=== PATIENT | female | born 1945 | race Hispanic/Latino ===

== ENCOUNTER 2023-08-07 23:37 | Inpatient (IN) | payer SELFPAY ==
[~2023-08-07] VITALS: Ht 157.5 cm; Wt 62.4 kg
[2023-08-08] VITALS (14 sets, daily range): BP systolic 100–115; BP diastolic 40–52; PULSE 71–81; RESP 16–18; TEMP 98–212.4; O2SAT 96–100
[2023-08-08 00:06] LABS: BASOPHILS # (AUTO) 0.1 (0.0-0.1); BASOPHILS % 1.1 % (0.0-1.0); EOSINOPHILS # (AUTO) 0.3 (0.0-0.4); EOSINOPHILS % 6.3 % (0.0-6.0); HEMATOCRIT 24.4 % (34.2-44.1); HEMOGLOBIN 7.7 g/dL (12.0-16.0); LYMPHOCYTES # (AUTO) 0.8 (1.0-3.2); LYMPHOCYTES % 14.8 % (18.0-39.1); MEAN CORPUSCULAR HGB CONC 31.6 g/dL (31-35); MEAN CORPUSCULAR VOLUME 94.9 fL (81-99); MONOCYTES # (AUTO) 0.5 (0.2-0.8); MONOCYTES % 9.5 % (4.4-11.3); NEUTROPHILS # (AUTO) 3.6 (2.1-6.9); NEUTROPHILS % 67.9 % (38.7-80.0); PLATELET COUNT 101 x10e3/uL (140-360); RED BLOOD COUNT 2.57 x10e6/uL (3.6-5.1); RED CELL DISTRIBUTION WIDTH 16.9 % (11.7-14.4); WHITE BLOOD COUNT 5.26 x10e3/uL (4.8-10.8)
[2023-08-08 00:13] LABS: INR 1.19; PROTHROMBIN TIME 15.8 seconds (11.9-14.5)
[2023-08-08 00:14] LABS: PARTIAL THROMBOPLASTIN TIME 38.3 seconds (23.8-35.5)
[2023-08-08 00:25] LABS: ANION GAP 11.3 mmol/L (8-16); CALCIUM 8.5 mg/dL (8.4-10.2); CREATININE, SERUM 1.61 mg/dL (0.57-1.11); POTASSIUM 4.3 mmol/L (3.5-5.1)
[2023-08-08 00:46] LABS: ALBUMIN 2.4 g/dL (3.5-5.0); ALBUMIN/GLOBULIN RATIO 0.7 (0.8-2.0)
[2023-08-08 01:31] LABS: CLARITY,URINE CLOUDY (CLEAR); COLOR,URINE YELLOW (YELLOW); LEUKOCYTE ESTERASE ,URINE TRACE (NEGATIVE); NITRITE,URINE NEGATIVE (NEGATIVE); PROTEIN,URINE DIPSTICK NEGATIVE (NEGATIVE)
[2023-08-08 01:32] LABS: KETONES,URINE TRACE (NEGATIVE); URINE UROBILINOGEN 0.2 mg/dL (0.2 - 1)
[2023-08-08 01:38] LABS: BACTERIA,URINE MANY /HPF; EPITHELIAL CELLS,URINE MANY /LPF; WBC,URINE (MAN) >50 /HPF (0-5)
[2023-08-08] MEDS ORDERED: SODIUM CHLORIDE 0.9% 1000ML 1,000 ML IV ONE (02:00)
[2023-08-08] MEDS ORDERED: ONDANSETRON HCL INJ 2MG/ML 2ML 2 MG/ML VIAL IV PRN (02:00)
[2023-08-08] MEDS ORDERED: DEXTROSE 50% SYRINGE 50 ML IV PRN (02:00)
[2023-08-08] MEDS ORDERED: LACTULOSE SYRUP 20 GM/30 ML UDC RC SCH ×2 (02:15→06:00)
[2023-08-08] MEDS: METRONIDAZOLE 500MG/NS 100ML 100 ML IV SCH ×5 (03:34→23:52)
[2023-08-08] MEDS ORDERED: LACTULOSE SYRUP 20 GM/30 ML UDC ONE ×2 (03:37→03:40)
[2023-08-08] MEDS ORDERED: XIFAXAN200 MG PO (04:30)
[2023-08-08] MEDS ORDERED: TRADJENTA5 MG (04:32)
[2023-08-08] MEDS ORDERED: PROPRANOLOL HCL40 MG PO (04:32)
[2023-08-08] MEDS: LACTULOSE SYRUP 20 GM/30 ML UDC RC SCH ×2 (05:40→05:51)
[2023-08-08] MEDS ORDERED: SIMETHICONE 80 MG CHEW PO PRN (08:15)
[2023-08-08] MEDS ORDERED: ALBUTEROL/IPRATROPIUM 3 ML NEB NEB PRN (08:15)
[2023-08-08] MEDS ORDERED: METOPROLOL TARTRATE INJ 1 MG/ML VIAL IV PRN (08:15)
[2023-08-08] MEDS ORDERED: LACTULOSE SYRUP 20 GM/30 ML UDC PO SCH (09:00)
[2023-08-08] MEDS: LACTULOSE SYRUP 20 GM/30 ML UDC PO SCH ×2 (14:43→21:27)
[2023-08-09] VITALS (10 sets, daily range): BP systolic 111–130; BP diastolic 48–60; PULSE 63–83; RESP 15–18; TEMP 97.6–98.6; O2SAT 95–100
[2023-08-09] MEDS: METRONIDAZOLE 500MG/NS 100ML 100 ML IV SCH ×3 (05:06→17:02)
[2023-08-09] MEDS: LACTULOSE SYRUP 20 GM/30 ML UDC PO SCH ×3 (05:07→22:47)
[2023-08-09 06:55] LABS: ALBUMIN/GLOBULIN RATIO 0.7 (0.8-2.0); ANION GAP 10.4 mmol/L (8-16); CALCIUM 8.1 mg/dL (8.4-10.2); CREATININE, SERUM 1.77 mg/dL (0.57-1.11); POTASSIUM 4.4 mmol/L (3.5-5.1)
[2023-08-09 08:26] LABS: BASOPHILS % 1.1 % (0.0-1.0); EOSINOPHILS # (AUTO) 0.3 (0.0-0.4); EOSINOPHILS % 9.1 % (0.0-6.0); HEMOGLOBIN 6.7 g/dL (12.0-16.0); LYMPHOCYTES # (AUTO) 0.7 (1.0-3.2); LYMPHOCYTES % 18.4 % (18.0-39.1); MEAN CORPUSCULAR HGB CONC 31.9 g/dL (31-35); MEAN CORPUSCULAR VOLUME 94.2 fL (81-99); MONOCYTES # (AUTO) 0.4 (0.2-0.8); MONOCYTES % 9.9 % (4.4-11.3); NEUTROPHILS # (AUTO) 2.2 (2.1-6.9); NEUTROPHILS % 61.2 % (38.7-80.0); PLATELET COUNT 69 x10e3/uL (140-360); RED BLOOD COUNT 2.23 x10e6/uL (3.6-5.1); RED CELL DISTRIBUTION WIDTH 16.8 % (11.7-14.4); WHITE BLOOD COUNT 3.64 x10e3/uL (4.8-10.8)
[2023-08-09] MEDS ORDERED: ONDANSETRON HCL 4 MG ORAL DISINTEGRATING TAB PO PRN (10:00)
[2023-08-09 12:50] LABS: HEMOGLOBIN 7.2 g/dL (12.0-16.0)
[2023-08-09] MEDS: SODIUM BICARBONATE 650 MG TAB PO SCH ×2 (12:51→19:43)
[2023-08-09 13:01] LABS: HEMATOCRIT 23.1 % (34.2-44.1)
[2023-08-09] MEDS ORDERED: ALBUMIN 25% 12.5GM 50ML 0 ML IV ONE (15:40)
[2023-08-09 17:43] LABS: BODY FLUID APPEARANCE CLOUDY; BODY FLUID COLOR STRAW; BODY FLUID TYPE PERITONEAL; RBC,BODY FLUID < 2000 cells/uL; WBC,BODY FLUID 129 cells/uL
[2023-08-09] MEDS ORDERED: TRAMADOL HCL 50 MG TAB PO PRN (19:30)
[2023-08-09 19:41] LABS: LYMPHOCYTES,BODY FLUID 12 %; MONO/MACROPHG,BODY FLUID 63 %; NEUTROPHILS,BODY FLUID 25 %
[2023-08-09 23:46] LABS: % IRON SATURATION 14 % (15-50); IRON 33 ug/dL (50-170); TOTAL IRON BINDING CAPACITY 238 ug/dL (261-478); TRANSFERRIN 170 mg/dL (180-382)
[2023-08-10] VITALS (9 sets, daily range): BP systolic 107–125; BP diastolic 42–63; PULSE 72–85; RESP 16–20; TEMP 97.6–98.7; O2SAT 96–100
[2023-08-10] MEDS: SODIUM BICARBONATE 650 MG TAB PO SCH ×3 (04:59→20:16)
[2023-08-10 06:29] LABS: BASOPHILS % 1.2 % (0.0-1.0); EOSINOPHILS # (AUTO) 0.3 (0.0-0.4); EOSINOPHILS % 12.1 % (0.0-6.0); LYMPHOCYTES # (AUTO) 0.5 (1.0-3.2); LYMPHOCYTES % 19.5 % (18.0-39.1); MEAN CORPUSCULAR HEMOGLOBIN 30.7 pg (28-32); MEAN CORPUSCULAR HGB CONC 31.6 g/dL (31-35); MONOCYTES # (AUTO) 0.3 (0.2-0.8); MONOCYTES % 10.5 % (4.4-11.3); NEUTROPHILS # (AUTO) 1.5 (2.1-6.9); NEUTROPHILS % 56.3 % (38.7-80.0); RED BLOOD COUNT 2.12 x10e6/uL (3.6-5.1); RED CELL DISTRIBUTION WIDTH 16.9 % (11.7-14.4); WHITE BLOOD COUNT 2.57 x10e3/uL (4.8-10.8)
[2023-08-10] MEDS: LACTULOSE SYRUP 20 GM/30 ML UDC PO SCH ×3 (06:29→22:08)
[2023-08-10 06:37] LABS: MEAN CORPUSCULAR VOLUME 97.2 fL (81-99)
[2023-08-10 06:38] LABS: HEMATOCRIT 20.6 % (34.2-44.1); HEMOGLOBIN 6.5 g/dL (12.0-16.0); PLATELET COUNT 56 x10e3/uL (140-360)
[2023-08-10 06:54] LABS: CREATININE, SERUM 1.69 mg/dL (0.57-1.11)
[2023-08-10] MEDS ORDERED: SODIUM CHLORIDE 0.9% 250ML 250 ML IV ONE (07:00)
[2023-08-10] MEDS ORDERED: SODIUM CHLORIDE 0.9% 250ML 250 ML ONE ×2 (16:23→22:08)
[2023-08-11] MEDS: SODIUM BICARBONATE 650 MG TAB PO SCH (03:59)
[2023-08-11 04:00] VITALS: BP 123/60; PULSE 89; RESP 18; TEMP 97.9; O2SAT 100
[2023-08-11] MEDS: LACTULOSE SYRUP 20 GM/30 ML UDC PO SCH (05:43)
[2023-08-11 06:40] LABS: BASOPHILS % 1.1 % (0.0-1.0); EOSINOPHILS # (AUTO) 0.3 (0.0-0.4); EOSINOPHILS % 11.8 % (0.0-6.0); HEMATOCRIT 28.1 % (34.2-44.1); HEMOGLOBIN 9.4 g/dL (12.0-16.0); LYMPHOCYTES # (AUTO) 0.5 (1.0-3.2); LYMPHOCYTES % 19.1 % (18.0-39.1); MEAN CORPUSCULAR HEMOGLOBIN 30.2 pg (28-32); MEAN CORPUSCULAR HGB CONC 33.5 g/dL (31-35); MEAN CORPUSCULAR VOLUME 90.4 fL (81-99); MONOCYTES # (AUTO) 0.3 (0.2-0.8); MONOCYTES % 9.9 % (4.4-11.3); NEUTROPHILS # (AUTO) 1.6 (2.1-6.9); NEUTROPHILS % 57.4 % (38.7-80.0); PLATELET COUNT 52 x10e3/uL (140-360); RED BLOOD COUNT 3.11 x10e6/uL (3.6-5.1); RED CELL DISTRIBUTION WIDTH 17.3 % (11.7-14.4); WHITE BLOOD COUNT 2.72 x10e3/uL (4.8-10.8)
[2023-08-11 06:55] VITALS: PULSE 72; RESP 18; O2SAT 96
[2023-08-11 07:30] VITALS: BP 115/55; PULSE 72; RESP 18; TEMP 97.9; O2SAT 96
[2023-08-11 08:47] VITALS: BP 115/55; PULSE 91; RESP 18; TEMP 98.7; O2SAT 98
[2023-08-11] MEDS ORDERED: IRON SUCROSE 100 MG in SODIUM CHLORIDE 0.9% 100 ML IV SCH (09:00)
[2023-08-11] MEDS ORDERED: SODIUM BICARBO650 MG PO (09:42)
[2023-08-11] MEDS ORDERED: LEVOFLOXACIN250 MG PO ×2 (09:42→09:46)
[2023-08-11] MEDS ORDERED: LACTULOSE20 GM/30 M PO (09:42)
[2023-08-13] MEDS ORDERED: SODIUM BICARBO650 MG PO (12:27)
[2023-08-13] MEDS ORDERED: LACTULOSE20 GM/30 M PO (12:27)
[2023-08-13] MEDS ORDERED: LEVOFLOXACIN250 MG PO (12:27)
== END 2023-08-11 11:48 | disposition home or self-care (01) | DRG 690 ==
LOC: ER 23:41 → ERHOLD 08-08 01:49 → MED/SURG2 08-08 03:07
PROVIDERS: ADMIT Internal Medicine; ATTEND Internal Medicine
PROC: 0W9G3ZZ Drainage of Peritoneal Cavity, Percutaneous Approach (ICD-10-PCS; principal; 2023-08-10)
PROC: 30243N1 Transfusion of Nonautologous Red Blood Cells into Central Vein, Percutaneous Approach (ICD-10-PCS; 2023-08-10)
DX: N39.0 Urinary tract infection, site not specified (principal); E72.4 Disorders of ornithine metabolism; N17.9 Acute kidney failure, unspecified; Z16.12 Extended spectrum beta lactamase (ESBL) resistance; E87.20 Acidosis, unspecified; R18.8 Other ascites; K76.82 Hepatic encephalopathy; B96.1 Klebsiella pneumoniae [K. pneumoniae] as the cause of diseases classified elsewhere; D64.9 Anemia, unspecified; D69.6 Thrombocytopenia, unspecified; K74.60 Unspecified cirrhosis of liver; R53.1 Weakness; Z20.822 Contact with and (suspected) exposure to COVID-19
CPT/HCPCS: 36415; 49083; 70450; 71045; 76705; 80048; 80053; 81001; 82040; 82140; 82607; 82746; 82948; 83540; 83690; 84466; 84484; 85014; 85018; 85025; 85045; 85610; 85730; 86850; 86900; 86920; 87070; 87086; 87186; 87205; 88112; 88305; 89051; 93005; 94799; 99284; J0696; J1756; J2185; J7030; J7050; P9016; U0002